=== PATIENT | male | born 1975 | race Caucasian/White ===

== ENCOUNTER 2019-05-11 20:39 | Emergency (ER) | payer SELFPAY ==
--- NOTE | 2019-05-11 20:50 | ER Document Report ---
ED Medical Screen (RME) - General Chief Complaint: Medical Clearance Stated Complaint: DETOX Time Seen by Provider: 05/11/19 20:46 Mode of Arrival: Ambulatory Information source: Patient Notes: 44-year-old male presented to ED requesting detox. He states his last beer was this morning. He states he drinks 2-3 beers 3-4 times a week. Denies use of drugs, states he smokes 1 or 2 cigarettes a day patient is alert oriented respirations regular nonlabored speaking in full sentences I have greeted and performed a rapid initial assessment of this patient. A comprehensive ED assessment and evaluation of the patient, analysis of test results and completion of medical decision making process will be conducted by an additional ED providers.
[2019-05-11 21:32] LABS: ABSOLUTE EOSINOPHILS # (AUTO) 0.1 10^3/uL (0.0-0.6); ABSOLUTE LYMPHOCYTES (AUTO) 1.7 10^3/uL (0.5-4.7); ABSOLUTE MONOCYTES (AUTO) 0.3 10^3/uL (0.1-1.4); BASOPHILS % (AUTO) 0.6 % (0-2); EOSINOPHILS % (AUTO) 0.8 % (0-6); HEMATOCRIT 35.9 % (37.9-51.0); HEMOGLOBIN 11.8 g/dL (13.5-17.0); LYMPHOCYTES % (AUTO) 24.5 % (13-45); MEAN CORPUSCULAR HEMOGLOBIN 30.5 pg (27.0-33.4); MEAN CORPUSCULAR HGB CONC 32.8 g/dL (32.0-36.0); MEAN CORPUSCULAR VOLUME 93 fl (80-97); MONOCYTES % (AUTO) 3.6 % (3-13); PLATELET COUNT 343 10^3/uL (150-450); RED BLOOD COUNT 3.86 10^6/uL (4.35-5.55); RED CELL DISTRIBUTION WIDTH 20.5 % (11.5-14.0); SEGMENTED NEUTROPHILS % (AUTO) 70.5 % (42-78); TOTAL CELLS COUNTED % (AUTO) 100 %
[2019-05-11 21:49] LABS: ALBUMIN 4.9 g/dL (3.5-5.0); ALKALINE PHOSPHATASE 132 U/L (38-126); ANION GAP 17 (5-19); ASPARTATE AMINO TRANSFERASE 43 U/L (17-59); BILIRUBIN,DIRECT 0.3 mg/dL (0.0-0.4); BILIRUBIN,TOTAL 0.3 mg/dL (0.2-1.3); BLOOD UREA NITROGEN 14 mg/dL (7-20); CARBON DIOXIDE 22 mmol/L (22-30); CHLORIDE 108 mmol/L (98-107); GLUCOSE 108 mg/dL (75-110); POTASSIUM 4.7 mmol/L (3.6-5.0); TOTAL PROTEIN 8.5 g/dL (6.3-8.2)
[2019-05-11 21:50] LABS: ACETAMINOPHEN < 10 ug/mL (10-30)
[2019-05-11 22:09] LABS: ALCOHOL 367 mg/dL (NONE DETECTED)
[2019-05-12 02:31] LABS: APPEARANCE,URINE CLOUDY; BILIRUBIN,URINE NEGATIVE (NEGATIVE); COLOR,URINE YELLOW; GLUCOSE, URINE NEGATIVE (NEGATIVE); KETONES,URINE NEGATIVE (NEGATIVE); PROTEIN,URINE 30 mg/dL (NEGATIVE); URINE SPECIFIC GRAVITY 1.013; UROBILINOGEN,URINE NEGATIVE mg/dL (<2.0)
[2019-05-12 02:55] LABS: URINE AMPHETAMINES SCREEN NEGATIVE; URINE BENZODIAZEPINES SCREEN NEGATIVE; URINE MARIJUANA (THC) SCREEN NEGATIVE; URINE METHADONE SCREEN NEGATIVE; URINE PHENCYCLIDINE SCREEN NEGATIVE
[2019-05-12 03:18] LABS: URINE BARBITURATES SCREEN UNCONFIRMED POSITIVE; URINE COCAINE SCREEN NEGATIVE
[2019-05-12] MEDS ORDERED: CEPHALEXIN 500 MG CAPSULE PO ONE (05:01)
[2019-05-12 05:10] VITALS: BP 123/85
--- NOTE | 2019-05-12 05:37 | ER Document Report ---
Entered by GABBY IRAHETA SCRIBE 05/12/19 0455 Acting as scribe for:CHRISTIAN MARQUES IV, MD ED Substance Abuse / Acc. OD - General Chief Complaint: Alcohol Withdrawl Stated Complaint: DETOX Time Seen by Provider: 05/11/19 20:46 Mode of Arrival: Ambulatory Information source: Patient Notes: This 44 year old male patient presents to the ED today from [facility] for medical clearance due to URSZULA elevation. Patient reports desire to get sober and receive treatment at [facility]. Patient's URSZULA has to be 0.2 or less in order to be eligible for detox at [facility]. Patient states that he normally drinks x2-3 beers about x4-5 times a week and that his last beer was yesterday morning. Patient states that he smokes x1-2 cigarettes qd. Patient denies drug use. - Related Data Allergies/Adverse Reactions: No Known Allergies Allergy (Verified 05/11/19 20:51) Home Medications: Trazadone Past Medical History - General Information source: Patient - Social History Smoking Status: Current Every Day Smoker Cigarette use (# per day): Yes - x1-2 cigarettes pd Chew tobacco use (# tins/day): No Smoking Education Provided: No Frequency of alcohol use: Heavy Drug Abuse: None Family History: Reviewed & Not Pertinent Patient has suicidal ideation: No Patient has homicidal ideation: No Review of Systems - Review of Systems Constitutional: See HPI, Other - Medical clearance to [facility] for ETOH detox EENT: No symptoms reported Cardiovascular: No symptoms reported Respiratory: No symptoms reported Gastrointestinal: No symptoms reported Genitourinary: No symptoms reported Male Genitourinary: No symptoms reported Musculoskeletal: No symptoms reported Skin: No symptoms reported Hematologic/Lymphatic: No symptoms reported Neurological/Psychological: No symptoms reported -: Yes All other systems reviewed and negative Physical Exam - Vital signs Vitals: Temp Pulse Resp BP Pulse Ox 97.7 F 98 20 113/82 94 05/11/19 20:47 05/11/19 20:47 05/11/19 20:47 05/11/19 20:47 05/11/19 20:47 Interpretation: Normal - General General appearance: Appears well, Alert - HEENT Head: Normocephalic, Atraumatic Eyes: Normal Pupils: PERRL - Respiratory Respiratory status: No respiratory distress Chest status: Nontender Breath sounds: Normal Chest palpation: Normal - Cardiovascular Rhythm: Regular Heart sounds: Normal auscultation Murmur: No - Abdominal Inspection: Normal Distension: No distension Bowel sounds: Normal Tenderness: Nontender - Abdomen soft Organomegaly: No organomegaly - Back Back: Normal, Nontender - Extremities General upper extremity: Normal inspection General lower extremity: Normal inspection - Neurological Neuro grossly intact: Yes - Psychological Associated symptoms: Normal affect, Normal mood - Skin Skin Temperature: Warm Skin Moisture: Dry Skin Color: Normal Course - Re-evaluation Re-evalutation: 05/12/19 05:05 Results of ED MSE discussed with patient. Patient is aware plan to return to [facility] upon discharge from the emergency department. [facility] has been notified that the patient will be coming back over. - Vital Signs Vital signs: Temp Pulse Resp BP Pulse Ox 98.2 F 115 H 17 123/85 98 05/12/19 05:09 05/12/19 05:09 05/12/19 05:09 05/12/19 05:09 05/12/19 05:09 - Laboratory Result Diagrams: 05/11/19 21:15 05/11/19 21:15 Laboratory results interpreted by me: 05/11/19 05/11/19 05/12/19 21:15 21:15 02:09 RBC 3.86 L Hgb 11.8 L Hct 35.9 L RDW 20.5 H Sodium 146.5 H Chloride 108 H Alkaline Phosphatase 132 H Total Protein 8.5 H Urine Protein 30 H Urine Blood SMALL H Leukocyte Esterase Rfl LARGE H Acetaminophen < 10 L Serum Alcohol 367 H* Discharge - Discharge Clinical Impression: Alcohol use disorder UTI (urinary tract infection) Qualifiers: Urinary tract infection type: site unspecified Hematuria presence: with hematuria Qualified Code(s): N39.0 - Urinary tract infection, site not specified; R31.9 - Hematuria, unspecified Condition: Good Disposition: REHAB FACILITY Instructions: Urinary Tract Infection ([facility]) Additional Instructions: Return to the Emergency Department without delay if any worse. HOME CARE INSTRUCTIONS & INFORMATION: Thank you for choosing us for your medical needs. We hope you're satisfied with the care you received. After you leave, you must properly care for your problem and, at the same time, observe its progress. Any condition can change. Some illnesses can change rapidly over hours or days. If your condition worsens, return to the Emergency Department or see your physician promptly. ABOUT YOUR X-RAYS AND EKG'S: If you had an EKG or X-rays taken, they have been read by the Emergency Physician. The X-rays and EKG's will also be read by a Radiologist or [employer] Engineer within 24 hours. If discrepancies are noted, you will be notified by telephone. Please be certain the ED has a correct telephone number & address where you can be reached. Also, realize that some fractures or abnormalities do not show up on initial X-rays. If your symptoms continue, see your physician. ABOUT YOUR LABORATORY TEST: If you had laboratory tests, the results have been reviewed by the Emergency Physician. Some test results (for example cultures) may not be available for several days. You will be contacted if any test result shows you need additional treatment. Please be certain the ED has a correct telephone number and address where you can be reached. ABOUT YOUR MEDICATIONS: You will receive instructions on how to take your medicine on the prescription label you receive. Additional information may be provided by the Pharmacy. If you have questions afterwards, call the ED for clarification or further instructions. Some prescribed medications may cause drowsiness. Do not perform tasks such as driving a car or operating machinery without consulting your Pharmacist. If you feel you need a refill of pain medication, your condition will need re-evaluation. Please do not call for a refill of any medication. ABOUT YOUR SIGNATURE: Signature of this document acknowledges to followin. Understanding that you received emergency treatment and that you may be released before al medical problems are known or treated. Please be certain the ED has a correct phone number & address where you can be reached. 2. Acknowledgement that you will arrange for follow-up care as recommended. 3. Authorization for the Emergency Physician to provide information to your follow-up Physician in order to maximize your care. AT ANY TIME, IF YOUR SYMPTOMS CHANGE SIGNIFICANTLY OR WORSEN OR YOU DEVELOP NEW SYMPTOMS, RETURN TO THE EMERGENCY DEPARTMENT IMMEDIATELY FOR RE-EVALUATION. OUR GOAL IS TO PROVIDE EXCELLENT MEDICAL CARE! WE HOPE THAT WE HAVE MET YOUR EXPECTATIONS DURING YOUR EMERGENCY DEPARTMENT VISIT AND THAT YOU FEEL YOU HAVE RECEIVED EXCELLENT CARE! Urinary Tract Infection Your evaluation indicates that you have a urinary tract infection. This is due to germs growing in the bladder. This is a common problem. This infection usually responds quickly to antibiotics. Your antibiotic should be taken exactly as prescribed. Drink plenty of fluids -- three to four quarts a day. Occasionally, a bladder anesthetic will be prescribed to help stop the feeling of urgency until the antibiotic has a chance to clear the infection. This may cause your urine to be dark orange. Certain urine infections require a culture. If the doctor obtained a culture, the results will be back in two days. You should call to see if a change in treatment is needed. A repeat urinalysis after you finish treatment is often recommended. The physician will let you know if further testing is required. Call the doctor if you develop fever, chills, flank pain, inability to urinate, or blood in the urine. Prescriptions: Cephalexin Monohydrate [Keflex 500 mg Capsule] 500 mg PO QID 7 Days #28 capsule I personally performed the services described in the documentation, reviewed and edited the documentation which was dictated to the scribe in my presence, and it accurately records my words and actions.
== END 2019-05-12 05:22 ==
LOC: ER 20:39
DX: F10.10 Alcohol abuse, uncomplicated (principal); N39.0 Urinary tract infection, site not specified; R31.9 Hematuria, unspecified; F17.210 Nicotine dependence, cigarettes, uncomplicated
CPT/HCPCS: 36415; 80053; 80307; 81001; 83690; 85025; 87086; 87088; 87186; 99285